=== PATIENT | male | born 1945 | race Caucasian/White ===

== ENCOUNTER 2024-01-19 05:42 | Day surgery (SDC) | payer MEDICARE ==
[~2024-01-19] VITALS: Ht 167.6 cm; Wt 72.6 kg
[2024-01-19] MEDS ORDERED: FentaNYL CITRATE PF 100 MCG/2 ML VIAL ONE (07:34)
[2024-01-19] MEDS ORDERED: MIDAZOLAM HCL 2 MG/2 ML VIAL ONE (07:34)
[2024-01-19] MEDS ORDERED: SODIUM CHLORIDE 0.9% 1,000 ML ONE (07:38)
[2024-01-19] MEDS ORDERED: MONT-35 PO (08:17)
[2024-01-19 08:21] LABS: GLUCOMETER DEV NAME(LOC) SDS.; GLUCOSE,POINT OF CARE 140 MG/DL (70-110)
[2024-01-19] MEDS ORDERED: AMLO-258 PO (08:23)
[2024-01-19] MEDS ORDERED: ALBU18HF12 IH (08:23)
[2024-01-19] MEDS ORDERED: METF-1211 PO (08:23)
[2024-01-19] MEDS ORDERED: [UNRECOGNIZED DRUG - CODE] PO (08:23)
[2024-01-19] MEDS ORDERED: FAMO20 PO (08:23)
[2024-01-19] MEDS ORDERED: FLUT1BLS15 IH (08:23)
[2024-01-19] MEDS ORDERED: ATOR10TA PO (08:23)
[2024-01-19 08:53] VITALS: PULSE 96; RESP 15; O2SAT 100
[2024-01-19] MEDS: SODIUM CHLORIDE 0.9% 1,000 ML IV ONE (08:55)
[2024-01-19] MEDS ORDERED: MethylPREDNISolone SOD SUCC 125 MG/2 ML VIAL ONE (09:23)
[2024-01-19] MEDS: MethylPREDNISolone SOD SUCC 125 MG/2 ML VIAL IVP ONE (09:57)
== END 2024-01-19 11:25 | disposition home or self-care (01) ==
LOC: SURGERY 05:42
PROVIDERS: ATTEND Internal Medicine Critical Care Medicine
DX: R05.3 Chronic cough (principal); R06.2 Wheezing; R49.0 Dysphonia; R04.2 Hemoptysis; R91.8 Other nonspecific abnormal finding of lung field; J38.4 Edema of larynx; B37.0 Candidal stomatitis; I10 Essential (primary) hypertension; E11.9 Type 2 diabetes mellitus without complications; Z79.84 Long term (current) use of oral hypoglycemic drugs; Z98.890 Other specified postprocedural states
CPT/HCPCS: 31623; 31624; 71045; 82962; 87015; 87070; 87101; 87206; 87220; J2250; J2919; J3010; J7030